=== PATIENT | female | born 1975 | race Caucasian/White ===

== ENCOUNTER → 2020-05-23 14:15 | Outpatient (BNVA) | payer BC, SELFPAY | PROVIDERS: Family Provider Nurse Practitioner Family; PCP Nurse Practitioner Family; Visit Provider Obstetrics & Gynecology | DX: N93.9 Abnormal uterine and vaginal bleeding, unspecified (principal) | CPT/HCPCS: 84443; 85025 ==

== ENCOUNTER → 2020-05-30 10:44 | Outpatient (BNVA) | payer BC, SELFPAY | PROVIDERS: Family Provider Nurse Practitioner Family; PCP Nurse Practitioner Family; Visit Provider Obstetrics & Gynecology | DX: N93.9 Abnormal uterine and vaginal bleeding, unspecified (principal) | CPT/HCPCS: 76830 ==

== ENCOUNTER → 2020-06-06 10:45 | Outpatient (BNVA) | payer BC, SELFPAY | PROVIDERS: Family Provider Nurse Practitioner Family; PCP Nurse Practitioner Family; Visit Provider Obstetrics & Gynecology | DX: N93.9 Abnormal uterine and vaginal bleeding, unspecified (principal); Z12.4 Encounter for screening for malignant neoplasm of cervix | CPT/HCPCS: 81025; 88175; 88305 ==

== ENCOUNTER → 2020-07-03 11:41 | Outpatient (BNVA) | payer BC, SELFPAY | PROVIDERS: Family Provider Nurse Practitioner Family; PCP Nurse Practitioner Family; Visit Provider Obstetrics & Gynecology | DX: N93.9 Abnormal uterine and vaginal bleeding, unspecified (principal) | CPT/HCPCS: 81025 ==

== ENCOUNTER → 2021-04-22 10:58 | Outpatient (BNVA) | payer OTHER, SELFPAY | PROVIDERS: Family Provider Nurse Practitioner Family; PCP Nurse Practitioner Family; Visit Provider Nurse Practitioner Family | DX: Z20.822 Contact with and (suspected) exposure to COVID-19 (principal) | CPT/HCPCS: 87635 ==

== ENCOUNTER → 2021-12-15 10:30 | Outpatient (BNVA) | payer OTHER, SELFPAY | PROVIDERS: Family Provider Nurse Practitioner Family; Visit Provider Nurse Practitioner | DX: J02.9 Acute pharyngitis, unspecified (principal) | CPT/HCPCS: 87071; 87400; 87880 ==

== ENCOUNTER → 2022-07-01 13:50 | Outpatient (BNVA) | payer OTHER, SELFPAY | PROVIDERS: Family Provider Nurse Practitioner Family; Visit Provider Nurse Practitioner Family | DX: J06.9 Acute upper respiratory infection, unspecified (principal) | CPT/HCPCS: 87426 ==

== ENCOUNTER 2022-11-20 15:06 | Outpatient (CLI) | payer OTHER, SELFPAY ==
--- NOTE | 2022-11-20 15:18 | MM_ITS ---
WS: [id number] BILATERAL 3D TOMOSYNTHESIS DIGITAL SCREENING MAMMOGRAPHY WITH CAD CLINICAL INFORMATION: Z12.39 - Encounter for other screening for malignant neop... HISTORY: Screening mammogram. No current complaints. BASELINE TECHNIQUE: Bilateral CC and MLO views. FINDINGS: Scattered fibroglandular densities bilaterally. No suspicious focal mass, asymmetry, calcifications, or architectural distortion. No evidence of malignancy. MM/[place] [id number] IMPRESSION: BI-RADS: 1-Negative FOLLOW UP: 1 Year Follow-up Recommend return to annual screening mammography.
== END 2022-11-20 15:07 | disposition home or self-care (01) ==
LOC: RAD 15:09
PROVIDERS: Visit Provider Nurse Practitioner Women's Health
DX: Z12.31 Encounter for screening mammogram for malignant neoplasm of breast (principal)
CPT/HCPCS: 77063; 77067

== ENCOUNTER 2023-07-03 09:42 | Emergency (ER) | payer OTHER, SELFPAY ==
--- NOTE | 2023-07-03 09:50 | XR_ITS ---
WS: [id number] Portable AP upright chest, 07/03/2023 Clinical Data: dyspnea/cough Comparison: None. Findings: No nodules, masses or effusions are seen. The heart is normal. The pulmonary vascularity is not increased. No pneumonia or pneumothorax is seen. There is a healed left midclavicular fracture. Impression: Negative chest.
[2023-07-03 09:51] VITALS: BP 198/93; PULSE 91; RESP 18; TEMP 36.6; O2SAT 99; BMI 58.1
[2023-07-03 10:09] LABS: Basophils # 0.1 10^3/uL (0.0-0.1); Basophils % 0.6 %; Eosinophils # 0.4 10^3/uL (0.0-0.8); Hematocrit 42.8 % (36-47); Lymphocytes # 3.7 10^3/uL (0.8-4.8); Lymphocytes % 21.1 %; Mean Corpuscular HGB Conc 32.5 g/dL (30-55); Mean Corpuscular Hemoglobin 32.3 pg (27-33); Mean Corpuscular Volume 99.5 fl (85-98); Mean Platelet Volume 9.9 fL (7.4-10.4); Monocytes % 5.7 %; Neutrophils # 12.38 10^3/uL (1.8-7.7); Nucleated Red Blood Cells % 0 %; Platelet Count 224 10^3/cmm (157-399); Red Cell Distribution Width 13.5 % (12.1-15.1); White Blood Count 17.67 10^3/uL (3.29-11.43)
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
[2023-07-03 10:30] VITALS: PULSE 72; RESP 18; O2SAT 96
[2023-07-03 10:30] LABS: Alanine Aminotransferase 26 U/L (0-33); Alkaline Phosphatase 91 U/L (35-105); Anion Gap 14.8 (5-19); Aspartate Amino Transferase 13 U/L (0-32); Blood Urea Nitrogen 12 mg/dL (6-20); Calcium 8.9 mg/dL (8.5-10.5); Carbon Dioxide 25 mmol/L (22-29); Chloride 102 mmol/L (98-107); Globulin 3.2 g/dL (1.3-4.6); Glomerular Filtration Rate 108.1 mL/min (90-130); Glucose 124 mg/dL (65-115); Osmolality Calculated 287 mOsm/kg (285-295); Potassium 3.8 mmol/L (3.5-5.1); Sodium 138 mmol/L (136-145); Total Bilirubin 0.2 mg/dL (0.15-1.2); Total Protein 7.2 g/dL (6.6-8.7)
[2023-07-03] MEDS: ipratropium-albuterol 3 mL Neb INHALATION (10:30)
[2023-07-03 10:48] LABS: ABG PCO2 36.5 mmHg (35-45); ABG PH Result 7.45 (7.35-7.45); Alveolar-Arterial Oxygen Gradi 5.4 mmHg (5-10); Arterial Blood Gas Hematocrit 41.8 % (37-47); Base Excess ABG 1.3 mmol/L (-2.0-2.0); Blood Gas Allen Test Pos; Blood Gas Operator Identificat AMH; Blood Gas Sample Site Radial, right; Blood Gas Sample Type Arterial; Carboxyhemoglobin 6.3 %THgb (0.4-20.1); HCO3 ABG 25.1 mmol/L (22-26); HGB O2 Sat 89.3 % (95-100); Ionized Calcium Level - ABG 1.2 mmol/L (1.1-1.4); Methemoglobin 0.4 % (0.4-1.5); Oxygen Device ROOM AIR; Oxygen Saturation ABG 95.7; PO2 ABG 63.2 mmHg (80.0-100.0); Potassium Level - ABG 3.9 mmol/L (3.5-5.0); Total Hemoglobin 13.6 g/dL (12-16)
[2023-07-03 10:49] LABS: Influenza A by IFA negative (Negative); Influenza B by IFA negative (Negative)
[2023-07-03] MEDS: dexamethasone 10 mg/mL INJ IVP (11:09)
== END 2023-07-03 12:19 | disposition home or self-care (01) ==
PROVIDERS: Emergency Provider Family Medicine
DX: J44.1 Chronic obstructive pulmonary disease with (acute) exacerbation (principal); F17.210 Nicotine dependence, cigarettes, uncomplicated
CPT/HCPCS: 36415; 36600; 71045; 80051; 80053; 82330; 82805; 85025; 87804; 94640; 96374; 99284; J1100

== ENCOUNTER 2023-07-29 12:16 | Outpatient (CLI) | payer OTHER, SELFPAY ==
--- NOTE | 2023-07-29 13:00 | CT_ITS ---
WS: [id number] CT PARANASAL SINUSES HISTORY: Sinusitis for 1 month. Prior sinus surgery TECHNIQUE: Contiguous 2.0 mm axial images obtained through the sinuses. Images are reconstructed in s agittal and coronal planes. All CT scans at [facility] use at least one of these dose optimiz ation techniques: automated exposure control; mA and/or kV adjustment per patient size (includes targ eted exams where dose is matched to clinical indication); or iterative reconstruction. DLP: 383.38 mGy.cm COMPARISON: None available. Frontal sinuses: Normal. Sphenoid sinus: Normal. Ethmoid sinuses: Very mild bilateral mucoperiosteal thickening in the anterior and posterior ethmoid air cells. Maxillary sinus: Prior sinus surgery. There is mild circumferential mucoperiosteal thickening involvi ng both maxillary antra. No bony expansion. No air-fluid levels. Ostiomeatal unit: Widely patent. There is a small amount of mucoperiosteal thickening near the widene d ostiomeatal units but there is no obstruction. RIGHT middle turbinate is absent and probably surgic ally removed. No significant nasal spurring. Nasal septum is midline. IMPRESSION: 1. Diffuse mucoperiosteal thickening involving the maxillary sinuses and to a lesser extent the ethmo id air cells. 2. No air-fluid levels. 3. No obstruction of the ostiomeatal unit.
== END 2023-07-29 12:17 | disposition home or self-care (01) ==
LOC: RAD 12:18
PROVIDERS: PCP Otolaryngology; Visit Provider Otolaryngology
DX: J32.9 Chronic sinusitis, unspecified (principal)
CPT/HCPCS: 70486

== ENCOUNTER → 2023-08-04 11:37 | Outpatient (BNVA) | payer OTHER, SELFPAY | PROVIDERS: PCP Otolaryngology; Visit Provider Nurse Practitioner Family | DX: R53.83 Other fatigue (principal) | CPT/HCPCS: 84439; 84443; 84481 ==

== ENCOUNTER → 2023-10-29 13:56 | Outpatient (BNVA) | payer OTHER, SELFPAY | PROVIDERS: PCP Otolaryngology; Visit Provider Nurse Practitioner Family | DX: R05.9 Cough, unspecified (principal); J06.9 Acute upper respiratory infection, unspecified | CPT/HCPCS: 87400; 87426 ==

== ENCOUNTER → 2023-11-12 15:00 | Outpatient (BNVA) | payer OTHER, SELFPAY | PROVIDERS: PCP Nurse Practitioner Family; Visit Provider Nurse Practitioner Women's Health | DX: R32 Unspecified urinary incontinence (principal) | CPT/HCPCS: 81000 ==

== ENCOUNTER → 2023-11-27 11:33 | Outpatient (BNVA) | payer OTHER, SELFPAY | PROVIDERS: PCP Nurse Practitioner Family; Visit Provider Nurse Practitioner Family | DX: E55.9 Vitamin D deficiency, unspecified (principal); R53.83 Other fatigue; R53.82 Chronic fatigue, unspecified | CPT/HCPCS: 82306; 82607; 83550; 84315 ==

== ENCOUNTER → 2024-04-04 13:33 | Outpatient (BNVA) | payer OTHER, SELFPAY | PROVIDERS: PCP Nurse Practitioner Family; Visit Provider Nurse Practitioner Family | DX: N39.0 Urinary tract infection, site not specified (principal); J30.89 Other allergic rhinitis | CPT/HCPCS: 81000; 87086 ==

== ENCOUNTER → 2024-08-14 10:12 | Outpatient (BNVA) | payer OTHER, SELFPAY | PROVIDERS: PCP Nurse Practitioner Family; Visit Provider Emergency Medicine | DX: J02.9 Acute pharyngitis, unspecified (principal) | CPT/HCPCS: 87071; 87880 ==

== ENCOUNTER → 2024-08-17 11:43 | Outpatient (BNVA) | payer OTHER, SELFPAY | PROVIDERS: PCP Nurse Practitioner Family; Visit Provider Nurse Practitioner Family | DX: J02.9 Acute pharyngitis, unspecified (principal); J02.0 Streptococcal pharyngitis | CPT/HCPCS: 87070; 87880 ==

== ENCOUNTER 2024-09-13 08:59 | Emergency (ER) | payer OTHER, SELFPAY ==
--- NOTE | 2024-09-13 09:05 | XR_ITS ---
WS: [id number] Exam: XR knee RT 3V* [id number] Date/Time of Exam: 09/13/2024 9:19 AM Reason For Exam: knee pain No acute fracture. There is moderate degenerative narrowing of the medial joint compartment. Spurring of the posterior patella. Trace joint effusion. Marginal osteophytes along the lateral joint. Soft t issues are otherwise unremarkable. XR/XR knee RT 3V* [id number] IMPRESSION: 1. Moderate degenerative changes as noted above. No fracture. Trace joint effus ion. Kellgren-Robbi grade of 2.
[2024-09-13 09:06] VITALS: BP 135/98; PULSE 67; RESP 18; TEMP 36.7; O2SAT 96; BMI 54.8
--- NOTE | 2024-09-13 09:10 | XR_ITS ---
WS: [id number] Exam: XR tibia fibula RT 2V [id number] Date/Time of Exam: 09/13/2024 9:19 AM Reason For Exam: FALL There is an oblique fracture through the lower fibula partially visualized. The remaining aspects of the tibia and fibula are intact. Normal soft tissues. IMPRESSION1. Oblique fracture of the distal fibula partially visualized.
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
--- NOTE | 2024-09-13 09:19 | XR_ITS ---
WS: [id number] Exam: XR ankle RT min 3V* [id number] Date/Time of Exam: 09/13/2024 9:20 AM Reason For Exam: pain There is an oblique fracture of the distal fibula with minimal separation. No other fractures of the ankle are noted. Normal soft tissues. The ankle mortise remains intact. XR/XR ankle RT min 3V* [id number] IMPRESSION: 1. Fracture distal fibula without significant displacement.
[2024-09-13 09:40] VITALS: BP 141/83; O2SAT 99
[2024-09-13] MEDS: HYDROcodone-acetaminophen 5-325 mg Tablet 1 TAB PO (11:36)
[2024-09-13 11:37] VITALS: BP 141/83; PULSE 73; O2SAT 98
--- NOTE | 2024-09-15 07:17 | DCPLANNER ---
messaged ortho for er f/u
== END 2024-09-13 11:38 | disposition home or self-care (01) ==
PROVIDERS: Emergency Provider Family Medicine; PCP Nurse Practitioner Family
DX: S82.831A Other fracture of upper and lower end of right fibula, initial encounter for closed fracture (principal); Z72.0 Tobacco use; W01.0XXA Fall on same level from slipping, tripping and stumbling without subsequent striking against object, initial encounter
CPT/HCPCS: 73562; 73590; 73610; 99284

== ENCOUNTER 2024-09-16 08:22 | Outpatient (CLI) | payer OTHER, SELFPAY | END 2024-09-16 08:23 | disposition home or self-care (01) | LOC: SPT 08:23 | PROVIDERS: PCP Nurse Practitioner Family; Visit Provider Podiatrist Foot & Ankle Surgery | DX: Z46.89 Encounter for fitting and adjustment of other specified devices (principal); S82.831S Other fracture of upper and lower end of right fibula, sequela; X58.XXXS Exposure to other specified factors, sequela | CPT/HCPCS: L4361 ==

== ENCOUNTER → 2024-09-26 07:58 | Outpatient (BNVA) | payer OTHER, SELFPAY | PROVIDERS: PCP Nurse Practitioner Family; Visit Provider Podiatrist Foot & Ankle Surgery | DX: S82.831D Other fracture of upper and lower end of right fibula, subsequent encounter for closed fracture with routine healing; W01.0XXD Fall on same level from slipping, tripping and stumbling without subsequent striking against object, subsequent encounter | CPT/HCPCS: 73610 ==

== ENCOUNTER → 2024-10-12 09:10 | Outpatient (BNVA) | payer OTHER, SELFPAY | PROVIDERS: PCP Nurse Practitioner Family; Visit Provider Podiatrist Foot & Ankle Surgery | DX: S99.911D Unspecified injury of right ankle, subsequent encounter; S82.831D Other fracture of upper and lower end of right fibula, subsequent encounter for closed fracture with routine healing; W01.0XXD Fall on same level from slipping, tripping and stumbling without subsequent striking against object, subsequent encounter | CPT/HCPCS: 73610 ==

== ENCOUNTER → 2024-11-01 07:27 | Outpatient (BNVA) | payer OTHER, SELFPAY | PROVIDERS: PCP Nurse Practitioner Family; Visit Provider Podiatrist Foot & Ankle Surgery | DX: S82.831G Other fracture of upper and lower end of right fibula, subsequent encounter for closed fracture with delayed healing; W10.2XXD Fall (on)(from) incline, subsequent encounter | CPT/HCPCS: 73610 ==

== ENCOUNTER → 2024-11-14 08:16 | Outpatient (BNVA) | payer OTHER, SELFPAY | PROVIDERS: PCP Nurse Practitioner Family; Visit Provider Podiatrist Foot & Ankle Surgery | DX: S82.831G Other fracture of upper and lower end of right fibula, subsequent encounter for closed fracture with delayed healing (principal); W01.0XXD Fall on same level from slipping, tripping and stumbling without subsequent striking against object, subsequent encounter | CPT/HCPCS: 73610 ==

== ENCOUNTER 2024-11-14 10:13 | Outpatient (CLI) | payer OTHER, SELFPAY | END 2024-11-14 10:14 | disposition home or self-care (01) | LOC: SPT 10:14 | PROVIDERS: PCP Nurse Practitioner Family; Visit Provider Podiatrist Foot & Ankle Surgery | DX: Z46.89 Encounter for fitting and adjustment of other specified devices (principal); S82.831G Other fracture of upper and lower end of right fibula, subsequent encounter for closed fracture with delayed healing; X58.XXXD Exposure to other specified factors, subsequent encounter | CPT/HCPCS: L1902 ==

== ENCOUNTER → 2024-12-07 14:06 | Outpatient (BNVA) | payer OTHER, SELFPAY | PROVIDERS: PCP Nurse Practitioner Family; Visit Provider Podiatrist Foot & Ankle Surgery | DX: S82.831G Other fracture of upper and lower end of right fibula, subsequent encounter for closed fracture with delayed healing (principal); W01.0XXD Fall on same level from slipping, tripping and stumbling without subsequent striking against object, subsequent encounter | CPT/HCPCS: 73610 ==

== ENCOUNTER 2024-12-09 05:51 | Day surgery (SDC) | payer OTHER, SELFPAY ==
[2024-12-09] VITALS (13 sets, daily range): BP systolic 98–141; BP diastolic 57–94; PULSE 70–82; RESP 14–20; TEMP 36.1–36.4; O2SAT 92–99; BMI 55.7
--- NOTE | 2024-12-09 | XR_ITS ---
WS: [id number] C-ARM RADIOGRAPHS RIGHT ANKLE; 2 IMAGES HISTORY: SHERINEGopal BOBO COMPARISON: Radiograph 12/07/2024 Intraoperative imaging during plate and screw fixation fibular fracture. XR/XR ankle RT 2V [id number] IMPRESSION: Intraoperative imaging during fibular fracture ORIF.
[2024-12-09] MEDS: sodium chloride 0.9% 1,000 ML 30 ML IV (06:15)
[2024-12-09 06:23] LABS: OR HCG Qualitative Urine Negative (Negative)
--- NOTE | 2024-12-09 06:53 | ANES.PREANE2 ---
Pre-Anesthetic Assessment Height/Weight: Height 1.68 m Weight 156.489 kg Temp Pulse Resp BP Pulse Ox O2 Del Method 97.6 F 73 20 H 141/94 96 Room Air 12/09/24 06:07 12/09/24 06:07 12/09/24 06:07 12/09/24 06:07 12/09/24 06:07 12/09/24 06:07 Preop Diagnosis: Right distal fibular fracture Operation Date: 12/09/24 07:00 Proposed Procedures p ORIF Distal Fibula(Right) - Rishi Mccloud DPM Familial anesthetic complications: None Was Beta Natan taken within 24 hours: N/A Was Clonidine taken within 24 hours: N/A Last intake: > 8 hrs Social Tobacco and No alcohol Exam alert, oriented x 3, clear to auscultation bilaterally and regular rate & rhythm Airway Mallampati: Class IV Dentition: full Pulmonary Asthma Metabolic Morbid Obesity Anesthetic Plan ASA status: 3 Anesthesia: General and Regional (specify below) Risk of > 500 ml blood loss (7ml/kg in children): No Other Pertinent Information URI 2 weeks ago, completed course of antibiotics Medications/Allergies Home Medications ?Medication ?Instructions ?Recorded ?Confirmed ?Last Taken ?Type levonorgestrel (Mirena) 1 device intrauterine .every 5 07/03/20 12/08/24 12/08/24 19:30 Rx years #1 ea fluticasone fur. 200 mcg-umeclid 1 inh inhalation DAILY 11/27/23 12/08/24 12/08/24 19:30 History 62.5 mcg-vilant 25 mcg inhalat.powder (Trelegy Ellipta) fluticasone propionate 50 2 spray intranasal BID PRN nasal 12/17/23 12/08/24 12/08/24 19:30 Rx mcg/actuation nasal congestion #32 grams spray,suspension hydroxyzine HCl 10 mg tablet 10 mg PO DAILY PRN anxiety 04/14/24 12/08/24 12/08/24 19:30 History nystatin 100,000 unit/gram topical 1 applic topical BID #60 grams 06/24/24 12/08/24 12/08/24 19:30 Rx powder ibuprofen 600 mg tablet 600 mg PO Q8H PRN pain #30 tabs 08/14/24 12/08/24 12/08/24 19:30 Rx albuterol sulfate 90 mcg/actuation 2 puff inhalation Q6H PRN 09/13/24 12/08/24 12/08/24 19:30 History aerosol inhaler Shortness Of Breath Or Wheezing sertraline 100 mg tablet 100 mg PO BID 09/13/24 12/08/24 12/08/24 19:30 History cam boot to right #1 ea 09/15/24 12/09/24 12/08/24 19:30 Rx ASO to right #1 ea 11/14/24 12/09/24 12/08/24 19:30 Rx nystatin 100,000 unit/mL oral 500,000 unit (5 mL) PO TID #473 mL 11/25/24 12/08/24 12/08/24 19:30 Rx suspension albuterol sulfate 2.5 mg/3 mL 2.5 mg (3 mL) inhalation QID PRN 11/28/24 12/08/24 12/08/24 19:30 Rx (0.083 %) solution for nebulization shortness of breath or wheezing #75 mL diclofenac sodium 75 mg 75 mg PO DAILY 12/08/24 12/08/24 12/08/24 19:30 History tablet,delayed release montelukast 10 mg tablet 10 mg PO DAILY 12/08/24 12/08/24 12/08/24 19:30 History hydrocodone 10 mg-acetaminophen 1 tab PO Q6H PRN pain 7 days #28 12/09/24 Unknown Rx 325 mg tablet tabs Allergies Allergy/AdvReac Type Severity Reaction Status Date / Time Beef Containing Products Allergy Severe ADR-Chest Verified 12/09/24 06:05 Pain Pork/Porcine Containing Allergy Severe ADR-Chest Verified 12/09/24 06:05 Products Pain clavulanic acid (From AdvReac Abdominal Verified 12/09/24 06:05 Augmentin) cramping, nausea codeine AdvReac hallucinations-can Verified 12/09/24 06:05 take hydrocodone alpha gal Allergy Intermediate Unknown Uncoded 12/09/24 06:05 Current Medications Generic Name Dose Route Start Last Admin Trade Name Freq PRN Reason Stop Dose Admin Sodium Chloride 1,000 mls @ 30 mls/hr 12/09/24 06:00 12/09/24 06:15 Sodium Chloride 0.9% IV 12/10/24 05:59 30 mls/hr .Q24H MALLIKA Administration PFSH Anesthesia Medical History Morbid obesity with BMI of 50.0-59.9, adult Allergic rhinitis due to allergen Asthma Allergies since she was a child. She uses her inhaler 3-4 times a month--more during allergy season Anxiety and depression PTSD--symptoms controlled on Zoloft and she does see a counselor No pertinent past medical history Denies: diabetes, hypertension, seizures, DVT/PE. PCP: SHAAN Love Surgical History S/P laparotomy 1991--presented to the emergency room with pain and underwent an expiratory laparotomy via midline vertical infraumbilical incision--she was noted to have a ruptured right ovarian cyst and the cyst was removed. Appendix was removed as well. Patient was told everything was benign S/P appendectomy 1991--done at time of laparotomy History of facial surgery 2002--surgery on her nose for a draining sinus S/P laparoscopic cholecystectomy 2002 Family History Mother Diabetes Heart disease Father Stroke Heart disease Denies family history of Colon cancer Ovarian cancer Hyperlipidemia Breast cancer Hypertension Uterine cancer Thyroid disease Social History Smoking and tobacco/nicotine status: current some day tobacco/nicotine user Alcohol intake: never Substance/Drug Use: never Adopted: No Caregiver/support person: No Lives independently: No service: No Current occupational status: employed Current gender identity: Female Data Anesthesia Cardiac Studies: No Data to Display
--- NOTE | 2024-12-09 06:54 | ANES.PROC ---
Anesthesia Procedures Procedure/Date: 12/09/24 Nerve Block ^: Nerve Block 1: Main Anesthesia: general anesthesia Time Out Performed: Yes Consent: requested by attending/covering physician, from patient, from other, risks and benefits reviewed and patient agrees to proceed Nerve block location: popliteal (R) Anesthesia monitors applied: pulse oximetry, EKG, BP cuff and oxygen Nerve block position: supine Anesthetic Used: ropivicaine 0.5% (30 ml) and with decadron (4 mg) Ultrasound used to: recognize landmarks Nerve Stimulator Used?: No Interscalene/Femoral BLK: 4 stimuplex 21 g needle used for position and inplane approach, visualize local anesthetic spread and no vascular puncture identified Injection: neg aspiration of heme Patient Tolerated Procedure: well Complications: none
[2024-12-09] MEDS: clindamycin 600 MG/50 ML PREMIX 100 MG IV (06:58)
[2024-12-09] MEDS: clindamycin 300 MG/50 ML PREMIX 100 MG IV (07:20)
--- NOTE | 2024-12-09 08:09 | W.PM.BPON ---
Date of Procedure: 12/18/23 Surgeon: Rishi Mccloud DPM Electronic Design Engineer(s): Radha Procedure(s) performed: Open reduction internal fixation right distal fibula Findings of the procedure(s): No bony healing at the right fibular fracture. Estimated blood loss: 20 mL Specimen(s) removed: No specimens Post-operative diagnosis: Right distal fibular fracture with delayed healing Right popliteal block performed preoperatively, general LMA, tourniquet time 36 minutes right high calf
--- NOTE | 2024-12-09 08:10 | P.OP_ITS ---
Operative Report Date of procedure: December 09, 2024 Pre-op diagnosis: Injury of right ankle, subsequent encounter S99.911D Other closed fracture of distal end of right fibula with delayed healing, subsequent encounter S82.831G Post-op diagnosis: Injury of right ankle, subsequent encounter S99.911D Other closed fracture of distal end of right fibula with delayed healing, subsequent encounter S82.831G Procedure done: Open reduction internal fixation right distal fibula. CPT code 52333 Implants: 3 mm interfrag screw [place] 20 mm in length [place] 9 hole anatomic fibular plate with 3.5 mm locking screws 2-0 Vicryl 3-0 Vicryl Skin rickey Specimens removed/disposition: None Pathology: none Surgeon: Rishi Mccloud DPM Bankruptcy Judge: Suzan Estimated blood loss: 20 36 IV fluids: See intraoperative documentation Urine output: None Complications: None Findings: Nonhealing Lui Paredes B fracture right distal fibula Brief History: Repeat x-rays right ankle 3 views redemonstrate stannous Paredes B fracture with shortening, there is less than 2 mm of displacement. This fracture was treated for 2 months conservatively with cam boot immobilization. Patient has developed delayed union and is symptomatic necessitating surgical conversation. She would like to proceed with ORIF. I reviewed at length with the patient, the risks, potential complications, benefits, alternatives, expectations, and typical outcomes associated with the surgery. The risks and potential complications were explained in detail, including but not limited to infection, wound dehiscence or soft tissue complications, bleeding and hematoma, chronic edema, neuritis or nerve damage producing numbness or chronic pain, CRPS, failure to relieve pain or worsening pain, thick / painful / unsightly scar, limited motion / stiffness, malposition, delayed union, malunion, or nonunion, fracture, reaction to implants, anesthetic complications, venous thromboembolism, and deformity recurrence. I discussed the notion of no regrets with the patient as it pertains to complications and outcomes. The patient seemed to understand the nature of the proposed care and required convalescence. They asked appropriate questions, answered to their satisfaction. They are aware no guarantees can be made as to a satisfactory outcome and they understand there may be other possible unforeseen complications or outcomes not listed here that will be treated accordingly if they arise. There were no written or implied guarantees given to the patient. They gave informed consent to proceed. Procedure: Under mild sedation the patient was brought to the operating room and remained on the gurney in supine position. A timeout was performed. Anesthesia was then administered by the anesthesia service. Of note popliteal block to the right lower extremity is performed preoperatively per anesthesia service. Well-padded pneumatic tourniquet was applied to the right high calf. The right lower extremity was scrubbed, prepped and draped utilizing normal aseptic technique. Right foot and ankle were then exanguinated with an Esmarch bandage and tourniquet inflated to 250 mmHg. Attention was directed to the lateral aspect of the right ankle where bony landmark was palpated of the lateral malleolus and fibular shaft directly over the distal fibula a linear incision was performed through skin with #15 blade with dissection carried down to the layer periosteum utilizing sharp and blunt technique. Care was taken to retract and preserve neurovascular and tendinous structures. All bleeders were ligated and cauterized as necessary. Periosteum incision was made at the lateral aspect of the distal fibula and the fracture was identified and distracted there was noted to have no significant bony healing, fibrous soft tissue was curettaged from the fracture site and flushed with saline followed by reduction temporary fixation with [id number] fracture reduction forceps with the fibula out to length and the rotated and no angular deformity next utilizing standard AO technique a [place] 3 mm screw was inserted and interfrag lag technique with excellent bony apposition and compression noted followed by a anatomic fibular plate with 3.5 mm locking screws not violating the ankle mortise this was confirmed with AP oblique and lateral view, smooth range of motion of the right ankle intraoperatively and congruent ankle mortise appreciated on all 3 standard views AP oblique and lateral view on mini C arm. Cotton hook test yielded intact syndesmosis. The incision was irrigated with saline solution and closed in a layered fashion. Periosteum reapproximated with 2-0 Vicryl subcutaneous tissue with 3-0 Vicryl and skin with rickey. The incision was dressed with Xeroform, 4 x 4's, Kerlix Kaiden wrap and cam boot was applied to the right lower extremity with ankle joint neutral position. Tourniquet was deflated and a prompt hyperemic response is noted to the distal digits of the right foot. Patient tolerated the procedure and anesthesia well and was transferred to the PACU with vital signs stable and vascular status intact. Following a period of postoperative monitoring she will be discharged home without home care instructions and scheduled follow-up
--- NOTE | 2024-12-09 08:35 | P.HPUD_ITS ---
Surgery/Procedure H&P Update DATE OF PROCEDURE: December 09, 2024 DATE H&P PERFORMED: 12/07/24 H&P UPDATE INFORMATION: I have reviewed H&P completed within last 30 days, I have examined patient prior to procedure, No changes to prior documentation and H&P is in [facility] EMR on date indicated PREOP DIAGNOSIS: Right distal fibular fracture PLANNED PROCEDURE: Operation Date: 12/09/24 07:00 Proposed Procedures p ORIF Distal Fibula(Right) - Rishi Mccloud DPM
--- NOTE | 2024-12-09 10:00 | ANE.PACU2 ---
Inpatient post-anesthesia follow up: Airway intact: Yes Vital signs: Temperature 97.0 F Pulse Rate 73 Respiratory Rate 18 Blood Pressure 106/66 Pulse Oximetry 93 Oxygen Delivery Me thod Room Air Oxygen Flow Rate 10 Fraction of Inspir ed Oxygen Hydration adequate: Yes Nausea and vomiting: No Pain level: 1 Mental status: Baseline
== END 2024-12-09 10:01 | disposition home or self-care (01) ==
PROVIDERS: Anesthesiology; PCP Nurse Practitioner Family; Visit Provider Podiatrist Foot & Ankle Surgery
PROC: (CPT 27792; principal; 2024-12-09 07:00)
DX: S82.831G Other fracture of upper and lower end of right fibula, subsequent encounter for closed fracture with delayed healing (principal); S99.911D Unspecified injury of right ankle, subsequent encounter; J45.909 Unspecified asthma, uncomplicated; E66.01 Morbid (severe) obesity due to excess calories; Z68.43 Body mass index [BMI] 50.0-59.9, adult; Z79.899 Other long term (current) drug therapy; Z88.5 Allergy status to narcotic agent; Z88.8 Allergy status to other drugs, medicaments and biological substances; Z90.49 Acquired absence of other specified parts of digestive tract; W01.0XXD Fall on same level from slipping, tripping and stumbling without subsequent striking against object, subsequent encounter; Z72.0 Tobacco use
CPT/HCPCS: 27792; 73600; 76000; 81025; C1713; J0330; J1100; J1200; J2371; J2405; J2704; J2795; J3010; J3490; J3535; J7030

== ENCOUNTER → 2024-12-22 13:55 | Outpatient (BNVA) | payer OTHER, SELFPAY | PROVIDERS: PCP Nurse Practitioner Family; Visit Provider Podiatrist Foot & Ankle Surgery | DX: Z98.890 Other specified postprocedural states (principal) | CPT/HCPCS: 73610 ==

== ENCOUNTER → 2025-01-19 13:06 | Outpatient (BNVA) | payer OTHER, SELFPAY | PROVIDERS: PCP Nurse Practitioner Family; Visit Provider Podiatrist Foot & Ankle Surgery | DX: Z98.890 Other specified postprocedural states (principal); Z87.81 Personal history of (healed) traumatic fracture | CPT/HCPCS: 73610 ==

== ENCOUNTER → 2025-02-16 13:51 | Outpatient (BNVA) | payer OTHER, SELFPAY | PROVIDERS: PCP Nurse Practitioner Family; Visit Provider Podiatrist Foot & Ankle Surgery | DX: Z98.890 Other specified postprocedural states (principal); Z87.81 Personal history of (healed) traumatic fracture | CPT/HCPCS: 73610 ==

== ENCOUNTER → 2025-03-20 11:32 | Outpatient (BNVA) | payer OTHER, SELFPAY | PROVIDERS: PCP Nurse Practitioner Family; Visit Provider Nurse Practitioner Family | DX: J02.9 Acute pharyngitis, unspecified (principal) | CPT/HCPCS: 87880 ==

== ENCOUNTER → 2025-04-28 14:09 | Outpatient (BNVA) | payer OTHER, SELFPAY | PROVIDERS: PCP Nurse Practitioner Family; Visit Provider Nurse Practitioner | DX: R39.9 Unspecified symptoms and signs involving the genitourinary system (principal) | CPT/HCPCS: 81000 ==

== ENCOUNTER → 2025-05-12 13:49 | Outpatient (BNVA) | payer OTHER, SELFPAY | PROVIDERS: PCP Nurse Practitioner Family; Visit Provider Nurse Practitioner Family | DX: N39.0 Urinary tract infection, site not specified (principal) | CPT/HCPCS: 81000 ==

== ENCOUNTER → 2025-05-26 08:41 | Outpatient (BNVA) | payer OTHER, SELFPAY | PROVIDERS: PCP Nurse Practitioner Family; Visit Provider Nurse Practitioner Family | DX: N39.0 Urinary tract infection, site not specified (principal) | CPT/HCPCS: 81000; 87086 ==

== ENCOUNTER → 2025-07-31 15:07 | Outpatient (BNVA) | payer OTHER, SELFPAY | PROVIDERS: PCP Nurse Practitioner Family; Visit Provider Nurse Practitioner Family | DX: N39.0 Urinary tract infection, site not specified (principal); F41.9 Anxiety disorder, unspecified; F32.9 Major depressive disorder, single episode, unspecified; I10 Essential (primary) hypertension; E55.9 Vitamin D deficiency, unspecified | CPT/HCPCS: 81000 ==

== ENCOUNTER → 2025-08-04 08:18 | Outpatient (BNVA) | payer OTHER, SELFPAY | PROVIDERS: PCP Nurse Practitioner Family; Visit Provider Nurse Practitioner Family | DX: I10 Essential (primary) hypertension (principal); F41.9 Anxiety disorder, unspecified; F32.9 Major depressive disorder, single episode, unspecified; E55.9 Vitamin D deficiency, unspecified | CPT/HCPCS: 80053; 80061; 82306; 84443 ==

== ENCOUNTER → 2025-09-15 09:24 | Outpatient (BNVA) | payer OTHER, SELFPAY ==
[2025-08-11 15:42] VITALS: BP 130/70; BMI 54.2
== END ==
PROVIDERS: PCP Nurse Practitioner Family; Visit Provider Nurse Practitioner
DX: R53.83 Other fatigue (principal); R39.89 Other symptoms and signs involving the genitourinary system
CPT/HCPCS: 81000; 87086